=== PATIENT | female | born 1975 | race Caucasian/White ===

== ENCOUNTER 2021-03-31 09:11 | Emergency (ER) | payer OTHER, BC ==
[2021-03-31] MEDS ORDERED: Bupivacaine 0.5% 30 ML SDV INJECT PRN (09:38)
[2021-03-31] MEDS ORDERED: Bupivacaine 0.5% 30 ML SDV INJECT ONE (09:40)
[2021-03-31] MEDS ORDERED: Clindamycin HCl 150 MG Cap PO SCH (09:45)
[2021-03-31] MEDS ORDERED: Acetaminophen/HYDROcodone 325-10 MG Tab PO PRN (09:45)
== END 2021-03-31 10:20 | disposition home or self-care (01) ==
LOC: VM.ED 09:11
DX: K04.7 Periapical abscess without sinus (principal); Z88.0 Allergy status to penicillin; Z88.5 Allergy status to narcotic agent
CPT/HCPCS: 64400; 99282; J3490

== ENCOUNTER 2022-11-05 08:25 | Emergency (ER) | payer OTHER, BC | END 2022-11-05 09:15 | disposition home or self-care (01) | LOC: VM.ED 08:25 | DX: S99.922A Unspecified injury of left foot, initial encounter (principal); E03.9 Hypothyroidism, unspecified; Z88.0 Allergy status to penicillin; Z88.5 Allergy status to narcotic agent; Z91.048 Other nonmedicinal substance allergy status; Z79.899 Other long term (current) drug therapy; V49.40XA Driver injured in collision with unspecified motor vehicles in traffic accident, initial encounter; Y92.410 Unspecified street and highway as the place of occurrence of the external cause | CPT/HCPCS: 99283 ==